=== PATIENT | female | born 1980 | race Caucasian/White ===

== ENCOUNTER 2018-12-06 20:39 | Inpatient (IN) | payer OTHER ==
[~2018-12-06] VITALS: Ht 167.6 cm; Wt 66.0 kg
[2018-12-06 21:35] LABS: BASOPHIL % 0.4 % (0-2); PLATELET COUNT 279 x10^3mcL (130-400); RED CELL DISTRIBUTION WIDTH 12.4 % (11.5-14.5)
[2018-12-06 21:44] LABS: CARBON DIOXIDE 30.3 mmol/L (21-32); CHLORIDE SERUM 105 mmol/L (98-107); CREATININE SERUM 0.7 mg/dL (0.6-1.0); GFR1 > 60 mL/min; GLUCOSE SERUM 105 mg/dL (74-106); POTASSIUM SERUM 4.2 mmol/L (3.5-5.1); SODIUM SERUM 142 mmol/L (136-145)
[2018-12-06 21:49] LABS: ALBUMIN 3.9 g/dL (3.4-5.0); ALKALINE PHOSPHATASE 60 U/L (46-116); ALT/SGPT 140 U/L (14-59); AST/SGOT 183 U/L (15-37); BILIRUBIN TOTAL 0.4 mg/dL (0.20-1.00); TOTAL PROTEIN, SERUM 7.3 g/dL (6.4-8.2)
[2018-12-07 03:40] LABS: microscopic required? NO
[2018-12-07 03:55] LABS: urine erythrocyte NEGATIVE (NEGATIVE)
[2018-12-07 04:05] LABS: MAGNESIUM 2.2 mg/dL (1.8-2.4); PHOSPHOROUS 3.2 mg/dL (2.5-4.9)
[2018-12-07 04:10] LABS: AMPHETAMINE QUAL UR NONE DETECTED (See below)
[2018-12-07 04:15] LABS: CHOLESTEROL/HDL RATIO 3.3
[2018-12-07 04:32] VITALS: BP 105/61
[2018-12-07 09:28] VITALS: BP 98/51
[2018-12-07 18:32] VITALS: BP 92/55
[2018-12-07 20:41] VITALS: Ht 167.6 cm; Wt 66.0 kg
[2018-12-07 21:37] VITALS: BP 95/60
[2018-12-08 05:18] VITALS: BP 100/61
[2018-12-08 07:18] LABS: BASOPHIL % 0.1 % (0-2); PLATELET COUNT 229 x10^3mcL (130-400)
[2018-12-08 07:31] LABS: CALCIUM 8.3 mg/dL (8.5-10.1); CARBON DIOXIDE 27.1 mmol/L (21-32); CHLORIDE SERUM 109 mmol/L (98-107); CREATININE SERUM 0.6 mg/dL (0.6-1.0); GFR1 > 60 mL/min; GLUCOSE SERUM 105 mg/dL (74-106); POTASSIUM SERUM 3.9 mmol/L (3.5-5.1); SODIUM SERUM 143 mmol/L (136-145)
[2018-12-08 08:37] VITALS: BP 107/57
[2018-12-08 21:00] VITALS: BP 96/49
[2018-12-09 05:27] VITALS: BP 102/50
[2018-12-09 06:25] LABS: BASOPHIL % 0.5 % (0-2); PLATELET COUNT 205 x10^3mcL (130-400); RED CELL DISTRIBUTION WIDTH 12.9 % (11.5-14.5)
[2018-12-09 06:38] LABS: CALCIUM 8.3 mg/dL (8.5-10.1); CARBON DIOXIDE 27.1 mmol/L (21-32); CHLORIDE SERUM 111 mmol/L (98-107); CREATININE SERUM 0.9 mg/dL (0.6-1.0); GFR1 > 60 mL/min; GLUCOSE SERUM 91 mg/dL (74-106); POTASSIUM SERUM 3.5 mmol/L (3.5-5.1); SODIUM SERUM 148 mmol/L (136-145)
[2018-12-09 08:18] VITALS: BP 93/54
[2018-12-09] MEDS ORDERED: CIPRO500 MG PO (11:02)
[2018-12-09] MEDS ORDERED: NORCO1 TA2 PO (11:02)
[2018-12-09] MEDS ORDERED: LAC PO (11:02)
[2018-12-09 12:57] VITALS: BP 93/54
[2018-12-09 13:00] VITALS: BP 93/54
== END 2018-12-09 13:33 | disposition home or self-care (01) | DRG 260 ==
LOC: ED 20:39 → MU 12-07 02:31
PROVIDERS: Family Medicine Addiction Medicine; ADMIT Internal Medicine
PROC: 0FB04ZZ Excision of Liver, Percutaneous Endoscopic Approach (ICD-10-PCS; 2018-12-07)
PROC: 0FT44ZZ Resection of Gallbladder, Percutaneous Endoscopic Approach (ICD-10-PCS; principal; 2018-12-07 16:15)
DX: K81.0 Acute cholecystitis (principal); E87.0 Hyperosmolality and hypernatremia; K81.1 Chronic cholecystitis; R74.0 Nonspecific elevation of levels of transaminase and lactic acid dehydrogenase [LDH]; Z68.23 Body mass index [BMI] 23.0-23.9, adult
CPT/HCPCS: J0696; J1170; J1885; J1956; J2001; J2250; J2405; J2543; J3010; J3490; J7030; Q0092